=== PATIENT | male | born 1965 | race Asian ===

== ENCOUNTER 2017-02-24 07:21 | Emergency (ER) | payer BC, OTHER ==
--- NOTE | 2017-02-24 07:35 | PDOC ---
History of Present Illness - General Chief Complaint: Hemoptysis Stated Complaint: COUGH Time Seen by Provider: 02/24/17 07:34 History Source: Patient Exam Limitations: No Limitations - History of Present Illness Initial Comments: 02/24/17 08:20 51M with no pmh presents with sob, cough for the past 3 days and blood in his cough since last night. Coughing up mucus tinged with blood consistently since last night. No sick contacts at home. Denies fever, chills, headaches but admits to some chest pain associated with the cough. No unexplained weight loss, no history of tuberculosis, 02/24/17 08:30 Past History - Past Medical History Allergies/Adverse Reactions: Allergies Allergy/AdvReac Type Severity Reaction Status Date / Time No Known Allergies Allergy Verified 02/24/17 07:46 Home Medications: Ambulatory Orders Cetirizine HCl [Zyrtec -] 5 mg PO PRN 07/22/13 Hydrocodone/Homatropine [Hycodan Oral Soln 60ML Repack] 60 ml GT BID #1 repak MDD 10cc 02/24/17 Cancer: No Cardiac Disorders: No CVA: No COPD: No CHF: No Dementia: No Diabetes: No GI Disorders: No Disorders: No HTN: No Hypercholesterolemia: Yes (LOST 35 POUNDS ON DIET) Liver Disease: No Seizures: No Thyroid Disease: No - Surgical History Abdominal Surgery: No Appendectomy: No Cardiac Surgery: No Cholecystectomy: No Lung Surgery: No Neurologic Surgery: No Orthopedic Surgery: No - Suicide/Smoking/Psychosocial Hx Smoking History: Unknown if ever smoked Hx Alcohol Use: No Drug/Substance Use Hx: No Review of Systems - Review of Systems Able to Perform ROS?: Yes Constitutional: No: Symptoms Reported HEENTM: No: Symptoms Reported Respiratory: Yes: See HPI Cardiac (ROS): No: Symptoms Reported ABD/GI: No: Symptoms Reported : No: Symptoms Reported Musculoskeletal: No: Symptoms Reported Integumentary: No: Symptoms Reported Neurological: No: Symptoms reported All Other Systems: Reviewed and Negative *Physical Exam - Physical Exam General Appearance: Yes: Nourished, Appropriately Dressed. No: Apparent Distress HEENT: positive: EOMI, FELICITY, Normal ENT Inspection Respiratory/Chest: positive: Lungs Clear, Normal Breath Sounds. negative: Chest Tender, Respiratory Distress Cardiovascular: positive: Regular Rhythm, Regular Rate, S1, S2 Gastrointestinal/Abdominal: positive: Normal Bowel Sounds, Flat, Soft. negative : Tender Extremity: positive: Normal Capillary Refill Integumentary: positive: Normal Color, Dry, Warm Neurologic: positive: Fully Oriented, Alert, Normal Mood/Affect ED Treatment Course - LABORATORY CBC & Chemistry Diagram: 02/24/17 08:44 02/24/17 07:44 Medical Decision Making - Medical Decision Making 02/24/17 08:32 Basic labs, xray, flu swab pending. 02/24/17 09:33 All labds and imaging negative. This is likely acute bronchitis. Follow up with primary doctor *DC/Admit/Observation/Transfer Diagnosis at time of Disposition: Acute bronchitis - Discharge Dispostion Disposition: HOME Admit: No - Prescriptions Prescriptions: Hydrocodone/Homatropine [Hycodan Oral Soln 60ML Repack] 60 ml GT BID #1 repak MDD 10cc - Referrals Referrals: Marcial Owens MD [Staff Physician] - - Patient Instructions Printed Discharge Instructions: DI for Acute Bronchitis Additional Instructions: Follow up with at the clinic of Dr. Owens listed on your packet. Come back to the ER for any new, concerning or worsening symptom. - Post Discharge Activity
[2017-02-24 07:46] VITALS: BMI 28.1
[2017-02-24 09:06] LABS: ALBUMIN 4.3 g/dl (3.4-5.0); ANION GAP 8 (8-16); BILIRUBIN,TOTAL 0.9 mg/dL (0.2-1.0); BLOOD UREA NITROGEN 16 mg/dL (7-18); CALCIUM 8.7 mg/dL (8.5-10.1); CHLORIDE 105 mmol/L (98-107); CO2 24 mmol/L (21-32); CREATININE 0.9 mg/dL (0.7-1.3); GLUCOSE,RANDOM 108 mg/dL (74-106); SGPT/ALT 51 U/L (12-78); SODIUM 137 mmol/L (136-145); TOT PROT 7.8 g/dl (6.4-8.2)
[2017-02-24 09:07] LABS: ALK PHOS 79 U/L (45-117)
[2017-02-24 09:09] LABS: BASO % 0.3 % (0-2.0); EOS % 0.4 % (0-4.5); HEMATOCRIT 46.1 % (35.4-49); HEMOGLOBIN 15.3 GM/dL (11.7-16.9); LYMPH % 11.1 % (8-40); MCH 28.4 pg (25.7-33.7); MCHC 33.2 g/dl (32.0-35.9); MEAN CELL VOLUME 85.5 fl (80-96); MEAN PLT VOLUME 8.6 fl (7.5-11.1); MONO % 7.1 % (3.8-10.2); NEUT % 81.1 % (42.8-82.8); PLATELET COUNT 228 K/MM3 (134-434); RBC 5.39 M/mm3 (4.00-5.60); RDW 13.7 % (11.9-15.9); WHITE BLOOD COUNT 13.1 K/mm3 (4.0-10.0)
--- NOTE | 2017-02-24 09:24 | PDOC ---
Attending Attestation - Resident Resident Name: Glen Bermudez - ED Attending Attestation I have performed the following: I have examined & evaluated the patient, The case was reviewed & discussed with the resident, I agree w/resident's findings & plan, Exceptions are as noted - HPI HPI: 02/24/17 09:18 51-year-old male with no severe past medical history and no smoking history presents with hemoptysis and shortness of breath since last night in the setting of 4 days of upper respiratory infection symptoms of rhinorrhea and cough. No actual chest pain, no fevers or chills or night sweats, no recent weight loss. Had difficulty sleeping secondary to cough and shortness of breath , no orthopnea. Recently traveled to [facility] about one month ago for vacation, no other exposures to reasons with endemic disease. - Physicial Exam PE: 02/24/17 09:19 Vital signs normal, afebrile, no tachypnea, normal O2 sat No active coughing during history or physical exam Lungs sounds are clear, no wheezing, good air entry, no focally decreased breath sounds No other bruising or ecchymosis, normal oral mucosa - Medical Decision Making 02/24/17 09:24 Patient seen and evaluated with the resident. I agree with the overall evaluation, assessment, and management with the following summary of visit: 51-year-old male with no severe past medical history presents with 4 days of URI symptoms, most prominently cough now with blood-tinged sputum since last night. Hemodynamically stable without acute respiratory distress, no active coughing in the emergency department. Vital signs normal. Presentation seems most consistent with bronchitis with small vessel rupture, rule out pneumonia, presentation is atypical for PE, no risk factors for underlying neoplastic process. Labs, EKG Chest x-ray Observe and reassess 02/24/17 09:28 labs wnl, cxr clear. no further coughing or gross hemoptysis in the ED. In the absence of any clots or large volume hemoptysis, no active cough, normal labs/vital signs/cxr, no further imaging is indicated and patient can f/u with PMD/pulmonary with strict return precautions. Heart Score/ECG Review #1 General ECG Interpretation: Sinus Rhythm, Normal Rate, Normal Intervals, No acute ischemic changes
[2017-02-24 09:26] LABS: POTASSIUM 4.1 mmol/L (3.5-5.1); SGOT/AST 18 U/L (15-37)
[2017-02-24] MEDS ORDERED: ALBUTEROL SO4 2.5/IPRATROPIUM 0.5 INH SOL 3 ML VIAL.NEB. NEB ONE ×2 (09:36→09:40)
[2017-02-24 10:02] VITALS: BP 125/83; PULSE 90; TEMP 98.4
--- NOTE | 2017-02-24 10:20 | EKG ---
Test Reason : Blood Pressure : / mmHG Vent. Rate : 087 BPM Atrial Rate : 087 BPM P-R Int : 190 ms QRS Dur : 100 ms QT Int : 364 ms P-R-T Axes : 053 005 028 degrees QTc Int : 438 ms NORMAL SINUS RHYTHM NORMAL ECG NO PREVIOUS ECGS AVAILABLE Confirmed by JOE BARRIOS, ARIEL ([id number]) on 02/24/2017 10:19:32 AM Referred By: Confirmed By:ARIEL DIAZ MD
== END 2017-02-24 10:02 | disposition home or self-care (01) ==
LOC: JER 07:21
PROC: 3E0F7GC Introduction of Other Therapeutic Substance into Respiratory Tract, Via Natural or Artificial Opening (ICD-10-PCS; principal; 2017-02-24)
DX: J20.9 Acute bronchitis, unspecified (principal)
CPT/HCPCS: 36415; 71046-TC; 80053; 85025; 87804; 93005; 93010; 99284-25

== ENCOUNTER 2017-03-03 21:34 | Observation (INO) | payer OTHER ==
--- NOTE | 2017-03-03 21:45 | PDOC ---
History of Present Illness - General Chief Complaint: Respiratory Stated Complaint: FEVER,COUGH, SORE THROAT Time Seen by Provider: 03/03/17 21:39 History Source: Patient Exam Limitations: No Limitations - History of Present Illness Initial Comments: 03/03/17 22:29 This is a 51-year-old male who comes in complaining of cough, congestion, shortness of breath and difficulty breathing especially when he lays down. Patient also is complaining of fevers that began today. Patient is had approximately 10 days of an upper respiratory tract type illness. Patient was at [facility] 6 days ago for evaluation. Patient had a workup at that time that showed a mildly elevated white count of 13,000 but otherwise workup was unremarkable. Patient had an influenza screen that was done at that time which was negative. He also had a rapid strep. Patient said he was getting better until today when all of a sudden he started spiking a temperature and said it was difficult for him to breathe secondary to both nasal congestion and his cough. Patient denies any chest pain. Patient says he has otherwise healthy denies any medical problems and takes no medications. Patient is not a smoker and does not do any recreational drugs. Patient did travel out of the country approximately a month ago to [facility]. PAST MEDICAL HISTORY: no significant history PAST SURGICAL HISTORY: no significant history FAMILY HISTORY: no pertinant history SOCIAL HISTORY: Pt lives with family and is employed. MEDICATIONS: reviewed ALLERGIES: As per nursing notes Review of Systems General: No fevers or chills, no weakness, no weight loss HEENT: No change in vision. No sore throat,. No ear pain CardioVascular: No chest pain or shortness of breath Respiratory:No cough, or wheezing. Gastrointestinal: no nausea, vomitting, diarrhea or constipation, No rectal bleeding Genitourinary: No dysuria, hematuria, or frequency Musculoskeletal: No joint or muscle pain or swelling Neurologic: No headache, vertigo, dizziness or loss of consciousness Psychiatric: nor depression Skin: No rashes or easy bruising Endocrine: no increased thirst or abnormal weight change Allergic: no skin or latex allergy All other systems reviewed and normal Exam: General: Well-nourished well-developed individual, patient appears uncomfortable but in no acute distress HEENT: Throat: Normal, tonsils normal, no erythema or exudate Neck: Supple, no meningeal signs, no lymphadenopathy Nasal: There is congestion of the nose with clear discharge Eyes::Pupils equal reactive and round, extraocular motion intact Chest: Nontender to palpation Cardiac: S1-S2 normal, regular rate and rhythm, no murmurs rubs or gallops Respiratory: Some decreased breath sounds on the left base with a few rhonchi Abdomen: Soft, nondistended, normal bowel sounds, nontender to palpation diffusely Extremities: Warm, dry, no cyanosis, clubbing, or edema Skin: No rashes Neuro: Alert and oriented x3, CN II - XII intact, nonfocal exam with normal strength, normal sensation, normal reflexes, normal gait, Psych: Normal mood and affect Medical decision making: This is a 51-year-old male who has had approximately 10 days now of upper respiratory tract type illness. Patient today developed new onset of fevers and chills and shortness of breath. Patient is uncomfortable appearing in the emergency department but in no acute distress. Patient does not appear toxic or septic. However will obtain a workup including chest x-ray, CBC, comp, blood cultures EKG. We'll give patient IV antibiotics azithromycin and ceftriaxone Well hydrated patient with some IV fluids We'll give patient Toradol for his dad he aches and fever Will reassess and review results of tests once completed. 03/03/17 23:11 Reassessment patient receiving IV antibiotics azithromycin is finished and ceftriaxone is being infused. Patient EKG shows normal sinus rhythm at a rate of [address]-T wave changes otherwise normal EKG Chest x-ray was read by the radiologist as no acute disease Patient has a normal white count and no left shift Patient has a mildly elevated glucose of 124 and sodium of 132. Patient's troponin is negative however the CPK is elevated at 550. This most likely is secondary to his upper respiratory tract infection. Patient will be placed in observation overnight given his hypoxia and shortness of breath. Flu swab is still pending however will start empirically on Tamiflu. . Signout given to the admitting hospitalist, Dr. Jimenez, who accepts the patient. Discussed plan with the patient family at bedside, Patient and family aware of the plan and agree. Patient is clinically unchanged and stable. Past History - Past Medical History Allergies/Adverse Reactions: Allergies Allergy/AdvReac Type Severity Reaction Status Date / Time No Known Allergies Allergy Verified 03/03/17 21:35 Home Medications: Ambulatory Orders NK [No Known Home Medication] 03/03/17 Cancer: No Cardiac Disorders: No CVA: No COPD: No CHF: No DVT: No Dementia: No Diabetes: No GI Disorders: No Disorders: No HTN: No Hypercholesterolemia: Yes (LOST 35 POUNDS ON DIET) Liver Disease: No Seizures: No Thyroid Disease: No - Surgical History Abdominal Surgery: No Appendectomy: No Cardiac Surgery: No Cholecystectomy: No Lung Surgery: No Neurologic Surgery: No Orthopedic Surgery: No - Immunization History Immunization Up to Date: No - Suicide/Smoking/Psychosocial Hx Smoking History: Former smoker Have you smoked in the past 12 months: No Information on smoking cessation initiated: No Hx Alcohol Use: Yes (OCCAS) Drug/Substance Use Hx: No Substance Use Type: None *Physical Exam - Vital Signs Last Vital Signs Temp Pulse Resp BP Pulse Ox 99.4 F 114 H 20 138/87 94 L 03/03/17 21:36 03/03/17 21:36 03/03/17 21:36 03/03/17 21:36 03/03/17 21:36 ED Treatment Course - LABORATORY CBC & Chemistry Diagram: 03/03/17 22:25 03/03/17 22:25 *DC/Admit/Observation/Transfer Diagnosis at time of Disposition: Atypical pneumonia - Discharge Dispostion Condition at time of disposition: Stable Admit: Yes - Referrals - Patient Instructions - Post Discharge Activity
[2017-03-03] MEDS ORDERED: SODIUM CHLORIDE 1,000 ML IV ONE (22:18)
[2017-03-03] MEDS ORDERED: KETOROLAC TROMETHAMINE 30 MG/1 ML VIAL IVPUSH ONE (22:18)
[2017-03-03] MEDS ORDERED: AZITHROMYCIN IVPB 500 MG in DEXTROSE 5%-WATER - 250 ML IVPB ONE (22:19)
[2017-03-03] MEDS ORDERED: KETOROLAC TROMETHAMINE 30 MG/1 ML VIAL ONE (22:30)
[2017-03-03] MEDS ORDERED: AZITHROMYCIN 500 MG VIAL IVPB ONE (22:30)
[2017-03-03] MEDS ORDERED: PSEUDOEPHEDRINE HCL 30 MG TABLET ONE (22:30)
[2017-03-03 22:40] LABS: BASO % 0.9 % (0-2.0); HEMATOCRIT 44.6 % (35.4-49); HEMOGLOBIN 14.7 GM/dl (11.7-16.9); LYMPH % 10.4 % (8-40); MCH 28.4 pg (25.7-33.7); MCHC 32.9 g/dl (32.0-35.9); MEAN CELL VOLUME 86.3 fl (80-96); MEAN PLT VOLUME 8.4 fl (7.5-11.1); MONO % 11.1 % (3.8-10.2); NEUT % 76.6 % (42.8-82.8); PLATELET COUNT 235 K/MM3 (134-434); RBC 5.17 M/mm3 (4.00-5.60); RDW 12.6 % (11.9-15.9); WHITE BLOOD COUNT 6.8 K/mm3 (4.0-10.8)
[2017-03-03] MEDS: PSEUDOEPHEDRINE HCL 30 MG TABLET PO SCH (22:41)
[2017-03-03] MEDS ORDERED: CEFTRIAXONE 1 GM in DEXTROSE 5%-WATER - 50 ML IVPB ONE (22:44)
[2017-03-03] MEDS ORDERED: cefTRIAXone SODIUM 1 GM VIAL ONE (22:49)
[2017-03-03 22:54] LABS: ALBUMIN 4.4 g/dl (3.5-5.0); ALK PHOS 70 U/L (32-92); ANION GAP 7 (8-16); BILIRUBIN,TOTAL 0.6 mg/dl (0.2-1.0); BLOOD UREA NITROGEN 14 mg/dl (7-18); CALCIUM 9.1 mg/dl (8.4-10.2); CHLORIDE 102 mmol/L (98-107); CO2 23 mmol/L (22-28); GLUCOSE,RANDOM 124 mg/dl (74-106); POTASSIUM 3.5 mmol/L (3.5-5.1); SGOT/AST 42 U/L (10-42); SGPT/ALT 64 U/L (10-40); SODIUM 132 mmol/L (136-145)
[2017-03-03 23:04] LABS: TROPONIN I (DFP) < 0.03 ng/ml (0.03-0.50)
[2017-03-03] MEDS ORDERED: OSELTAMIVIR PHOSPHATE 75 MG CAPSULE PO ONE (23:39)
[2017-03-03] MEDS ORDERED: OSELTAMIVIR PHOSPHATE 75 MG CAPSULE ONE (23:41)
[2017-03-03] MEDS ORDERED: SODIUM CHLORIDE 1,000 ML IV SCH (23:45)
[2017-03-04 01:15] LABS: URINE APPEARANCE CLEAR; URINE BILIRUBIN NEGATIVE (NEGATIVE); URINE COLOR STRAW; URINE GLUCOSE (UA) NEGATIVE (NEGATIVE); URINE KETONE NEGATIVE (NEGATIVE)
[2017-03-04 01:16] LABS: URINE BLOOD NEGATIVE (NEGATIVE); URINE NITRITE NEGATIVE (NEGATIVE); URINE PROTEIN NEGATIVE (NEGATIVE); URINE UROBILINOGEN NORMAL mg/dL (0.2-1.0)
[2017-03-04 01:54] VITALS: BMI 27.9
[2017-03-04] MEDS: PSEUDOEPHEDRINE HCL 30 MG TABLET PO SCH ×6 (02:48→22:08)
--- NOTE | 2017-03-04 08:21 | HP ---
CHIEF COMPLAINT: cough and throat pain PCP: none HISTORY OF PRESENT ILLNESS: Patient is a 51 y/o male with no significant past medical history. Patient reports with ten days of nasal congestion and moist cough. He was evaluated in this emergency department on 02/24/17 for an upper respiratory tract infection. Patient was discharged with hycodan. He reports ongoing nasal congestion and cough and was feeling improved but developed a tactile fever with generalized bodyaches within the past 48 hours. ER course was notable for: (1) rapid influenza, + influenza A (2)chest xray no acute pathology (3) wbc 6.8 Recent Travel: last month [facility] PAST MEDICAL HISTORY: none PAST SURGICAL HISTORY:none Social History: employed, Smoking: none Alcohol:none Drugs: none Family History: non contributory to this admission Allergies No Known Allergies Allergy (Verified 03/03/17 21:35) HOME MEDICATIONS: Home Medications Medication Instructions Recorded NK [No Known Home Medication] 03/03/17 REVIEW OF SYSTEMS CONSTITUTIONAL: Present: fever, chills, generalized weakness, malaise, loss of appetite Absent: diaphoresis, weight change HEENT: Absent: rhinorrhea, nasal congestion, throat pain, throat swelling, difficulty swallowing, mouth swelling, ear pain, eye pain, visual changes CARDIOVASCULAR: Absent: chest pain, syncope, palpitations, irregular heart rate, lightheadedness , peripheral edema RESPIRATORY: Present: cough, shortness of breath Absent: dyspnea with exertion, orthopnea, wheezing, stridor, hemoptysis GASTROINTESTINAL: Absent: abdominal pain, abdominal distension, nausea, vomiting, diarrhea, constipation, melena, hematochezia GENITOURINARY: Absent: dysuria, frequency, urgency, hesitancy, hematuria, flank pain, genital pain MUSCULOSKELETAL: Absent: myalgia, arthralgia, joint swelling, back pain, neck pain SKIN: Absent: rash, itching, pallor HEMATOLOGIC/IMMUNOLOGIC: Absent: easy bleeding, easy bruising, lymphadenopathy, frequent infections ENDOCRINE: Absent: unexplained weight gain, unexplained weight loss, heat intolerance, cold intolerance NEUROLOGIC: Absent: headache, focal weakness or paresthesias, dizziness, unsteady gait, seizure, mental status changes, bladder or bowel incontinence PSYCHIATRIC: Absent: anxiety, depression, suicidal or homicidal ideation, hallucinations. PHYSICAL EXAMINATION Vital Signs - 24 hr 01/23/18 01/24/18 01/24/18 21:36 00:07 00:56 Temperature 99.4 F 98.5 F 97.5 F L Pulse Rate 114 H Pulse Rate [ 90 Left] Respiratory 20 20 20 Rate Blood Pressure 138/87 125/72 Blood Pressure 112/76 [Left] O2 Sat by Pulse 94 L 97 97 Oximetry (%) 03/04/17 03/04/17 04:00 06:20 Temperature 98.7 F Pulse Rate 83 Pulse Rate [ Left] Respiratory 17 Rate Blood Pressure 109/63 Blood Pressure [Left] O2 Sat by Pulse 96 Oximetry (%) GENERAL: Awake, alert, and fully oriented, in no acute distress. HEAD: Normal with no signs of trauma. EYES: Pupils equal, round and reactive to light, extraocular movements intact, sclera anicteric, conjunctiva clear. No lid lag. EARS, NOSE, THROAT: Ears normal, nares patent, oropharynx erythematous, clear post nasal drip, Moist mucous membranes. NECK: Normal range of motion, supple without lymphadenopathy, JVD, or masses. LUNGS: Breath sounds equal, clear to auscultation bilaterally. persistent dry cough, No wheezes, and no crackles. No accessory muscle use. HEART: Regular rate and rhythm, normal S1 and S2 without murmur, rub or gallop. ABDOMEN: Soft, nontender, not distended, normoactive bowel sounds, no guarding, no rebound, no masses. No hepatomegaly or splenomegaly. MUSCULOSKELETAL: Normal range of motion at all joints. No bony deformities or tenderness. No CVA tenderness. UPPER EXTREMITIES: 2+ pulses, warm, well-perfused. No cyanosis. No clubbing. No peripheral edema. LOWER EXTREMITIES: 2+ pulses, warm, well-perfused. No calf tenderness. No peripheral edema. NEUROLOGICAL: Cranial nerves II-XII intact. Normal speech. Normal gait. PSYCHIATRIC: Cooperative. Good eye contact. Appropriate mood and affect. SKIN: Warm, dry, normal turgor, no rashes or lesions noted, normal capillary refill. Laboratory Results - last 24 hr 03/03/17 03/03/17 03/03/17 22:25 22:25 22:25 WBC 6.8 RBC 5.17 Hgb 14.7 Hct 44.6 MCV 86.3 MCH 28.4 MCHC 32.9 RDW 12.6 Plt Count 235 MPV 8.4 Neutrophils % 76.6 Lymphocytes % 10.4 Monocytes % 11.1 H Eosinophils % 1.0 Basophils % 0.9 Sodium 132 L Potassium 3.5 Chloride 102 Carbon Dioxide 23 Anion Gap 7 L BUN 14 Creatinine 1.0 Creat Clearance w eGFR > 60 Random Glucose 124 H Calcium 9.1 Total Bilirubin 0.6 AST 42 ALT 64 H Alkaline Phosphatase 70 Creatine Kinase 550 H Creatine Kinase Index 0.1 CK-MB (CK-2) 0.7 Troponin I < 0.03 L Total Protein 7.0 Albumin 4.4 Urine Color Urine Appearance Urine pH Ur Specific [place] Urine Protein Urine Glucose (UA) Urine Ketones Urine Blood Urine Nitrite Urine Bilirubin Urine Urobilinogen 03/04/17 00:50 WBC RBC Hgb Hct MCV MCH MCHC RDW Plt Count MPV Neutrophils % Lymphocytes % Monocytes % Eosinophils % Basophils % Sodium Potassium Chloride Carbon Dioxide Anion Gap BUN Creatinine Creat Clearance w eGFR Random Glucose Calcium Total Bilirubin AST ALT Alkaline Phosphatase Creatine Kinase Creatine Kinase Index CK-MB (CK-2) Troponin I Total Protein Albumin Urine Color Straw Urine Appearance Clear Urine pH 6.0 Ur Specific [place] 1.006 Urine Protein Negative Urine Glucose (UA) Negative Urine Ketones Negative Urine Blood Negative Urine Nitrite Negative Urine Bilirubin Negative Urine Urobilinogen Normal ASSESSMENT/PLAN: F/E/N - regular diet - Problem List - Problem (1) Influenza A Assessment/Plan: - rapid influenza A positive, start tamiflu - continue IV hydration - chest xray no acute pathology - start combivent nebulizers for bronchospasm - monitor spo2, keep above 92% Code(s): J10.1 - FLU DUE TO OTH IDENT INFLUENZA VIRUS W OTH RESP MANIFEST Visit type - Emergency Visit Emergency Visit: Yes ED Registration Date: 03/03/17 Care time: The patient presented to the Emergency Department on the above date and was hospitalized for further evaluation of their emergent condition. - New Patient This patient is new to me today: Yes Date on this admission: 03/04/17 - Critical Care Critical Care patient: No
[2017-03-04] MEDS: ALBUTEROL SO4 2.5/IPRATROPIUM 0.5 INH SOL 3 ML VIAL.NEB. NEB SCH ×4 (08:45→19:56)
[2017-03-04 08:54] LABS: HEMATOCRIT 42.3 % (35.4-49); HEMOGLOBIN 14.4 GM/dl (11.7-16.9); MCH 29.3 pg (25.7-33.7); MEAN CELL VOLUME 86.1 fl (80-96); MEAN PLT VOLUME 8.8 fl (7.5-11.1); PLATELET COUNT 204 K/MM3 (134-434); RBC 4.91 M/mm3 (4.00-5.60); RDW 12.2 % (11.9-15.9); WHITE BLOOD COUNT 5.4 K/mm3 (4.0-10.8)
[2017-03-04] MEDS ORDERED: ACETAMINOPHEN 1000 MG/100 ML VIAL (NON FORMULARY) IVPB ONE (09:00)
[2017-03-04] MEDS: D5-1/2NS+20 MEQ KCL - 20 MEQ/1,000 ML INFUS.BAG IV SCH (09:15)
[2017-03-04] MEDS: OSELTAMIVIR PHOSPHATE 75 MG CAPSULE PO SCH ×2 (09:16→22:08)
[2017-03-04] MEDS ORDERED: PT OWN MED DRAWER 7, Y5N ONE ×4 (09:46→21:33)
--- NOTE | 2017-03-04 09:52 | PN ---
Progress Note (short form) - Note Progress Note: ID Consult dictated Acute influenza A Continue Tamiflu 75mg po bid x 5d Droplet precautions
[2017-03-04 11:22] LABS: ANION GAP 9 (8-16); BLOOD UREA NITROGEN 11 mg/dl (7-18); CALCIUM 8.6 mg/dl (8.4-10.2); CHLORIDE 105 mmol/L (98-107); CO2 21 mmol/L (22-28); GLUCOSE,RANDOM 102 mg/dl (74-106); POTASSIUM 3.8 mmol/L (3.5-5.1); SODIUM 135 mmol/L (136-145)
--- NOTE | 2017-03-04 14:28 | EKG ---
Test Reason : Blood Pressure : / mmHG Vent. Rate : 108 BPM Atrial Rate : 108 BPM P-R Int : 218 ms QRS Dur : 094 ms QT Int : 314 ms P-R-T Axes : 046 035 012 degrees QTc Int : 420 ms SINUS TACHYCARDIA WITH 1ST DEGREE A-V BLOCK NONSPECIFIC T WAVE ABNORMALITY ABNORMAL ECG WHEN COMPARED WITH ECG OF 24-FEB-2017 07:43, First degree AV block is now noted Confirmed by DAVID BARRIOS, GRACE ([id number]) on 03/04/2017 2:28:14 PM Referred By: DR LUU Confirmed By:GRACE HERNANDEZ MD
--- NOTE | 2017-03-04 18:51 | CONS ---
INFECTIOUS DISEASE CONSULTATION DATE OF CONSULTATION: DATE OF DICTATION: 03/04/2017 REASON FOR CONSULTATION: The patient is a 51-year-old male evaluated for acute influenza A. HISTORY OF PRESENT ILLNESS: The patient reports not feeling well for the past 10 days. He had complained of nasal congestion, cough, dyspnea, and fever. He had presented to the emergency room approximately 6 days ago and was treated symptomatically and returned home. He now has worsening shortness of breath and chest discomfort with cough. Patient reports cough productive of whitish sputum. He denies any hemoptysis. He reports having high-grade fever and chills at home. In addition, he complains of body ache. He was evaluated in the emergency room where he was found to have a positive influenza swab for influenza A. The patient states he has been in contact with numerous people with respiratory tract illnesses. He did not recall receiving influenza vaccine. PAST MEDICAL HISTORY: Essentially negative. ALLERGIES: No known allergies. MEDICATIONS: In the hospital include Tamiflu, Sudafed, DuoNeb. SOCIAL HISTORY: He works in a bank, has direct contact with clients. He is a former smoker, occasional drinker. SYSTEMS REVIEW: Neurologic: No loss of consciousness, seizure activity, focal weakness. Cardiac: Negative chest pain and palpitations. Respiratory: As per HPI. Gastrointestinal: Negative vomiting or diarrhea. Genitourinary: As per HPI. LABORATORY DATA: White count 5.4, hematocrit 42.3, platelet count 204. BUN 14, creatinine 1.0. Chest x-ray negative for acute infiltrate. PHYSICAL EXAMINATION: General: He is awake and alert. He is in mild distress secondary to generalized body ache. He appears ill. Vital Signs: Temperature 98.7; blood pressure 109/63; pulse 83, regular; respirations 17 per minute. Patient is warm to touch. HEENT: Sclerae anicteric. Oropharynx: Mild pharyngeal injection. No exudate. Neck: Supple. No palpable nodes. Heart: Sounds S1, S2. Lungs: Scattered rhonchi bilaterally. Abdomen: Soft, nontender. Extremities: Negative for edema. IMPRESSION: Acute influenza A. RECOMMENDATIONS: Continue Tamiflu 75 mg p.o. b.i.d. for 5 days. Droplet precautions. IV fluid hydration and analgesics. Thank you for the kind referral. BRUNO GONZALEZ M.D. [id number]
[2017-03-05 05:32] VITALS: BP 103/68; PULSE 75; TEMP 98
[2017-03-05] MEDS ORDERED: PT OWN MED DRAWER 7, Y5N ONE ×2 (05:52→09:40)
[2017-03-05] MEDS: PSEUDOEPHEDRINE HCL 30 MG TABLET PO SCH ×3 (05:56→09:51)
[2017-03-05] MEDS: ALBUTEROL SO4 2.5/IPRATROPIUM 0.5 INH SOL 3 ML VIAL.NEB. NEB SCH (08:40)
--- NOTE | 2017-03-05 09:43 | DS ---
Physical Exam: SUBJECTIVE: Patient seen and examined, sitting in bed tolerating meals, reports feeling much improved, denies any shortness of breath, ready for discharge home. OBJECTIVE: Patient is a 51 y/o male with no significant past medical history. Patient reports with ten days of nasal congestion and moist cough. He was evaluated in this emergency department on 02/24/17 for an upper respiratory tract infection. Patient was discharged with hycodan. He reports ongoing nasal congestion and cough and was feeling improved but developed a tactile fever with generalized bodyaches within the past 48 hours. ER course was notable for: (1) rapid influenza, + influenza A (2)chest xray no acute pathology (3) wbc 6.8 Vital Signs Period Temp Pulse Resp BP Sys/Torres Pulse Ox Last 24 Hr 97.5 F-98.8 F 75-103 18-19 103-116/54-76 97-97 PHYSICAL EXAM GENERAL: The patient is awake, alert, and fully oriented, in no acute distress. HEAD: Normal with no signs of trauma. EYES: PERRL, extraocular movements intact, sclera anicteric, conjunctiva clear. ENT: Ears normal, nares patent, oropharynx clear without exudates, moist mucous membranes. NECK: Trachea midline, full range of motion, supple. LUNGS: Breath sounds equal, dry cough is noted, clear to auscultation bilaterally, no wheezes, no crackles, no accessory muscle use. HEART: Regular rate and rhythm, S1, S2 without murmur, rub or gallop. ABDOMEN: Soft, nontender, nondistended, normoactive bowel sounds, no guarding, no rebound, no hepatosplenomegaly, no masses. EXTREMITIES: 2+ pulses, warm, well-perfused, no edema. NEUROLOGICAL: Cranial nerves II through XII grossly intact. Normal speech, gait not observed. PSYCH: Normal mood, normal affect. SKIN: Warm, dry, normal turgor, no rashes or lesions noted. LABS Laboratory Results - last 24 hr 03/04/17 03/04/17 03/04/17 07:44 07:44 07:44 Sodium 135 L Potassium 3.8 Chloride 105 Carbon Dioxide 21 L Anion Gap 9 BUN 11 D Creatinine 1.0 Random Glucose 102 Calcium 8.6 Magnesium 2.0 Creatine Kinase Creatine Kinase Index 0.1 CK-MB (CK-2) 0.8 Troponin I < 0.03 L 03/04/17 07:44 Sodium Potassium Chloride Carbon Dioxide Anion Gap BUN Creatinine Random Glucose Calcium Magnesium Creatine Kinase 565 H Creatine Kinase Index CK-MB (CK-2) Troponin I Microbiology 03/04/17 00:50 Urine - Urine Clean Catch Urine Culture - Final NO GROWTH OBTAINED 03/03/17 22:25 Blood - Peripheral Venous Blood Culture - Preliminary NO GROWTH OBTAINED AFTER 24 HOURS, INCUBATION TO CONTINUE FOR 4 DAYS. 03/03/17 22:25 Blood - Peripheral Venous Blood Culture - Preliminary NO GROWTH OBTAINED AFTER 24 HOURS, INCUBATION TO CONTINUE FOR 4 DAYS. 03/03/17 22:45 Nasopharyngeal Swab Influenza Types A,B Antigen ([facility]ORGAN) - Final , + influenza A 03/03/17 22:45 Nasopharyngeal Swab - Final IMAGING chest xray: no acute disease HOSPITAL COURSE: Patient was admitted from the emergency department to observation. Rapid influenza A was noted to be positive, he was started on tamiflu on hospital day 1. Patient was given IV hydration. chest xray was noted for no acute pathology. Combivent nebulizers was given for bronchospasm with relief. Spo2 was kept above 92% without supplemental oxygen. PLAN: -discharge home - tamiflu Date of Admission:03/03/17 Date of Discharge: 03/05/17 Minutes to complete discharge: 45 Discharge Summary Reason For Visit: FEVER,COUGH, SORE THROAT Current Active Problems Atypical pneumonia (Acute) Influenza A (Acute) Condition: Stable - Instructions - Home Medications Comprehensive Discharge Medication List: Ambulatory Orders NK [No Known Home Medication] 03/03/17 Problem List - Problems (1) Influenza A Code(s): J10.1 - FLU DUE TO OTH IDENT INFLUENZA VIRUS W OTH RESP MANIFEST This patient is new to me today: No Emergency Visit: Yes ED Registration Date: 03/03/17 Care time: The patient presented to the Emergency Department on the above date and was hospitalized for further evaluation of their emergent condition. Critical Care patient: No - Discharge Referral Referred to [facility] No
[2017-03-05] MEDS: OSELTAMIVIR PHOSPHATE 75 MG CAPSULE PO SCH (09:52)
[2017-03-05] MEDS: D5-1/2NS+20 MEQ KCL - 20 MEQ/1,000 ML INFUS.BAG IV SCH (09:53)
== END 2017-03-05 12:00 | disposition home or self-care (01) ==
LOC: FER 21:34 → FM/S 23:52
PROVIDERS: ADMIT Internal Medicine; ATTEND Nurse Practitioner Family
PROC: 3E03329 Introduction of Other Anti-infective into Peripheral Vein, Percutaneous Approach (ICD-10-PCS; principal; 2017-03-03)
PROC: 3E033GC Introduction of Other Therapeutic Substance into Peripheral Vein, Percutaneous Approach (ICD-10-PCS; 2017-03-03)
PROC: 3E0337Z Introduction of Electrolytic and Water Balance Substance into Peripheral Vein, Percutaneous Approach (ICD-10-PCS; 2017-03-03)
DX: J09.X2 Influenza due to identified novel influenza A virus with other respiratory manifestations (principal); Z87.891 Personal history of nicotine dependence
CPT/HCPCS: 36415; 71045-TC; 80048; 80053; 81003; 82550; 82553; 83735; 84484; 85025; 85027; 87040; 87086; 87804; 93005; 94010; 94640; 99284-25; G0378